=== PATIENT | female | born 1980 | race Hispanic/Latino ===

== ENCOUNTER 2018-05-03 13:48 | Emergency (ER) | payer SELFPAY | END 2018-05-03 14:28 | disposition home or self-care (01) | LOC: EDH 13:48 | DX: L02.412 Cutaneous abscess of left axilla (principal); R59.1 Generalized enlarged lymph nodes; Z98.51 Tubal ligation status ==

== ENCOUNTER 2018-09-21 15:32 | Emergency (ER) | payer SELFPAY ==
[2018-09-21] MEDS ORDERED: SODIUM CHLORIDE 0.9% 500ML 500 ML IV ONE (15:38)
[2018-09-21] MEDS ORDERED: SODIUM CHLORIDE 0.9% 1000ML 1,000 ML IV ONE (15:38)
[2018-09-21] MEDS ORDERED: HYDROCORTISONE 25 MG SUPPOSITORY PR ONE (15:50)
[2018-09-21] MEDS ORDERED: HYOSCYAMINE SULFATE 0.125 MG TAB.SUBL SL ONE (15:50)
[2018-09-21] MEDS ORDERED: ONDANSETRON ODT 4 MG TAB ONE (15:51)
== END 2018-09-21 17:00 | disposition home or self-care (01) ==
LOC: EDH 15:32
DX: K64.1 Second degree hemorrhoids (principal)
CPT/HCPCS: 81025; 99284; J7030; J7040